=== PATIENT | male | born 1950 | race Caucasian/White ===

== ENCOUNTER → 2022-02-18 11:04 | Outpatient (CLI) | payer MEDICARE, SELFPAY ==
--- NOTE | ~2022-02-18 | XR_ITS ---
EXAMINATION: [id number] DATE: 02/18/2022 12:20 INDICATION: Right rib pain. TECHNIQUE: A frontal view of the chest on 2 radiographs and 2 views on 3 radiographs of the right rib s were obtained. COMPARISON: None. FINDINGS: The chest demonstrates clear lungs without pneumonia, pleural effusion, or pneumothorax. Th e heart size is normal. Surgical clips in the right upper quadrant are likely from cholecystectomy. T here are changes of anterior and posterior fusion procedures in lumbar spine. There is a filter in th e inferior vena cava. IMPRESSION: 1. No rib fracture. Reviewed, dictated and finalized at location A. IMPRESSION: 1. No rib fracture.
== END ==
PROVIDERS: PCP Family Medicine; Visit Provider Family Medicine
DX: Z04.3 Encounter for examination and observation following other accident (principal); R07.81 Pleurodynia
CPT/HCPCS: 71101

== ENCOUNTER 2022-02-20 08:46 | Outpatient (CLI) | payer MEDICARE, SELFPAY ==
--- NOTE | ~2022-02-20 | CT_ITS ---
EXAMINATION: CT diagnostic chest wo con DATE: 02/20/2022 09:07 INDICATION: Right rib pain under right breast. Status post recent fall one month ago. TECHNIQUE: Computed tomography (CT) of the chest was performed without intravenous contrast. The dose -length product was 813.87 mGy-cm. Automated exposure control and iterative reconstruction technique were employed. COMPARISON: Right rib series dated 02/18/2022 FINDINGS: Heart size is normal. No thoracic lymphadenopathy. There are small subcentimeter hypodensit ies of the liver, too small to characterize, although likely benign. There are cholecystectomy clips. No acute displaced rib fractures identified. Mild thoracic spondylosis with accentuated kyphosis. Th ere are a few small calcified granulomas of the lungs, consistent with chronic granulomatous disease. There is dependent atelectasis. There are a few small 1-2 mm nodules in the lungs which are not immanuel rly calcified, most likely benign. No pneumothorax. No endobronchial lesions. IMPRESSION: 1. No acute displaced rib fracture. No pneumothorax. 2: Small 1-2 mm lung nodules, likely benign. Consider follow-up low dose CT chest in 12 months. Reviewed, dictated and finalized at location A. IMPRESSION: 1. No acute displaced rib fracture. No pneumothorax. 2: Small 1-2 mm lung nodules, likely benign. Consider follow-up low dose CT est in 12 months.
== END 2022-02-20 08:47 ==
PROVIDERS: PCP Family Medicine; Visit Provider Family Medicine
DX: R07.81 Pleurodynia (principal); M47.814 Spondylosis without myelopathy or radiculopathy, thoracic region; M40.204 Unspecified kyphosis, thoracic region; R91.1 Solitary pulmonary nodule
CPT/HCPCS: 71250

== ENCOUNTER → 2023-01-22 10:07 | Outpatient (CLI) | payer MEDICARE, SELFPAY ==
--- NOTE | ~2023-01-22 | CT_ITS ---
EXAMINATION: CT abdomen pelvis w con INDICATION: Other specified abnormal findings of blood chemistry TECHNIQUE: Computed tomographic images of the abdomen and pelvis were obtained after the administrati on of 100 cc of Omnipaque 350 intravenous contrast. The dose-length product (DLP) was 1173.76 mGy-cm. Automated exposure control and iterative reconstruction technique were employed. COMPARISON: None available FINDINGS: Cysts of the liver measure up to 1.3 cm in the right hepatic lobe. The gallbladder is surgi isaiah absent. An IVC filter is noted. Punctate calcifications of the otherwise normal spleen are cons istent with old granulomatous disease. The pancreas and adrenal glands are normal. The kidneys are un remarkable. No pathologically enlarged abdominal or pelvic lymph nodes are identified. No free intrap eritoneal gas or evidence of bowel obstruction. Colonic diverticulosis is present without evidence of diverticulitis. There are changes of anterior and posterior fusion procedures in the lumbar spine. IMPRESSION: 1. Unremarkable CT of the abdomen and pelvis. Reviewed, dictated and finalized at location B.
--- NOTE | ~2023-01-22 | CT_ITS ---
EXAMINATION:CT diagnostic chest wo con DATE: 01/22/2023 10:42 INDICATION: Pulmonary nodule. TECHNIQUE: Computed tomography (CT) of the chest was performed without intravenous contrast. Automate d exposure control and iterative reconstruction technique were employed. The dose-length product (DLP ) was 397.09 mGy-cm. COMPARISON: Chest CT 02/20/2022 FINDINGS: There is mild dependent atelectasis bilaterally. There is a 2 mm nodule in right upper lobe , likely benign. There is a 3 mm nodule in left upper lobe, likely benign. Calcified left lung nodule s and calcified left hilar and mediastinal lymph nodes are consistent with old adenomatous disease. N o pleural effusion. The heart size is normal. No pericardial effusion. There are coronary artery calc ifications. Calcifications in the spleen are consistent with old granulomatous disease. There are mary kate nges of cholecystectomy. There is an 8 mm cyst in the liver. There is bilateral gynecomastia. There a re bridging endplate osteophytes at multiple levels in the spine, consistent with diffuse idiopathic skeletal hyperostosis (DISH). IMPRESSION: 1. Small lung nodules, likely benign. Reviewed, dictated and finalized at location A.
[2023-01-22 10:31] LABS: Estimated Glomerular Filt Rate > 60
== END ==
PROVIDERS: PCP Family Medicine; Visit Provider Family Medicine
DX: R91.8 Other nonspecific abnormal finding of lung field (principal); I10 Essential (primary) hypertension; E78.5 Hyperlipidemia, unspecified; E11.9 Type 2 diabetes mellitus without complications; E03.9 Hypothyroidism, unspecified; R79.89 Other specified abnormal findings of blood chemistry
CPT/HCPCS: 71250; 74177; Q9967

== ENCOUNTER 2024-04-07 13:08 | Outpatient (CLI) | payer MEDICARE, SELFPAY ==
--- NOTE | ~2024-04-07 | XR_ITS ---
EXAMINATION: XR hip LT min 2V DATE: 04/07/2024 13:29 INDICATION: Left hip pain TECHNIQUE: Anteroposterior and frog-leg lateral views of the left hip were obtained. COMPARISON: CT dated 01/22/2023 FINDINGS: Normal alignment at the left hip. Mild osteoarthritis with marginal osteophytes along the rim of the left acetabulum. No fracture or suspected osteonecrosis. Postoperative changes of a combined instrume nted anterior and posterior spinal fusion in the visualized lower lumbar spine with interbody bone gr aft cages and anterior plate and screw fixations at L4-L5 and L5-S1. Bilateral pedicle screws at L4 c onnected partially visualized vertical rods which extend cephalad beyond the cephalad margin of the f [id number]. Surgical clip projecting over the left sacral ala. IMPRESSION: 1. Mild left hip osteoarthritis. No acute osseous abnormality. Reviewed, dictated and finalized at location A.
== END 2024-04-07 13:09 ==
PROVIDERS: PCP Family Medicine; Visit Provider Nurse Practitioner Family
DX: M16.12 Unilateral primary osteoarthritis, left hip (principal); M25.552 Pain in left hip
CPT/HCPCS: 73502